=== PATIENT | male | born 1950 | race Native Hawaiian/Other Pacific Islander ===

== ENCOUNTER 2017-07-13 09:21 | Outpatient (CLI) | payer OTHER, MEDICARE | END 2017-07-13 19:07 | disposition home or self-care (01) | LOC: LABW 09:21 | DX: D64.89 Other specified anemias (principal) | CPT/HCPCS: 82272; 87015; 87045; 87205; 87328; 87329; 87899 ==

== ENCOUNTER 2020-02-12 12:37 | Outpatient (CLI) | payer OTHER | END 2020-02-12 20:10 | disposition home or self-care (01) | LOC: LAB 12:37 | DX: Z20.828 Contact with and (suspected) exposure to other viral communicable diseases (principal) | CPT/HCPCS: 87635; G2023; U0002 ==